=== PATIENT | female | born 1985 | race Caucasian/White ===

== ENCOUNTER 2025-09-03 13:20 | Emergency (ER) | payer BC, SELFPAY ==
[2025-09-03 13:26] VITALS: BP 137/91
[2025-09-03] MEDS: TORADOL 15 MG IV (15:52)
[2025-09-03 15:54] LABS: Hematocrit 42.7 % (37.0-47.0); Hemoglobin 13.8 g/dL (12.0-16.0); Mean Corp Hgb Conc. 32.3 g/dL (33.0-37.0); Mean Corpuscular Volume 87.0 fL (81.0-99.0); Nucleated Red Blood Cells % 0 %; Platelet Count 388 10^3/uL (130-400); Red Cell Dist. Width 12.4 % (11.5-14.5)
[2025-09-03 16:00] VITALS: BP 129/74
--- NOTE | 2025-09-03 16:04 | ED.GENMED ---
History of Present Illness
General
Chief Complaint: Musculo-Skeletal Complaint
Source: patient
Exam Limitations: none
Time Seen by Provider: 09/03/25 14:48
Nursing documentation reviewed up to this point in time: agreed with
History of Present Illness
History of Present Illness:
Patient is a 40-year-old healthy female who presents to the emergency department for evaluation of left arm pain along with painful swallowing. Patient states that for the past 2 days she has had a constant pain in her left upper chest/clavicle
area. She reports occasional radiation down her left arm. She denies any clear exertional or positional component to symptoms. No associated shortness of breath, back pain or productive cough. No known inciting injury or trauma.
In addition � patient reports she has been having pain in her left throat/neck only when swallowing over the past two days. She was seen at an urgent care yesterday where they tested her for strep, which was negative. She denies any other viral URI
symptoms. No known sick contacts.
Past History
Past History
ED Past Medical History: Other (Herniated disc, ADHD)
ED Past Surgical History: (X2) and Other (Jaw surgery)
Social History
Tobacco: Former smoker
Alcohol: None
Personal:
Living: with family
Review of Systems
Review of Systems
Allergies reviewed?: Yes
All Other Systems: ROS reviewed and negative except as documented in HPI and ROS
Phy Exam
Physical Exam
Physical Exam:
Vitals: Mildly hypertensive, otherwise vital signs stable. Afebrile
General: Patient is well appearing, no acute distress
Skin: Warm and dry, no rashes or lesions
Head: Normocephalic, atraumatic
Eyes: Sclera nonicteric.
Throat: No pharyngeal erythema. No tonsillar asymmetry, edema or exudates. Uvula midline. Protecting airway
Neck: Normal ROM, no cervical spine tenderness, no meningismus. No erythema, edema, or focal tenderness of neck. No palpable cervical lymphadenopathy.
Cardiac: Regular rate and rhythm, no murmurs. Mild reproducible tenderness in left upper chest wall.
Pulm: Normal respiratory effort. Lungs clear
Abdomen: No abdominal tenderness.
Extremities: No deformity or bony tenderness of LUE. No overlying skin changes. Full ROM in LUE against resistance. 2+ palpable radial and brachial pulse with normal capillary refill
Neuro: AAOx3. Grossly intact.
Psychiatric: Normal affect.
Course
Orders/Labs/Results
Orders:
Orders
09/03/25 13:21
Electrocardiogram (*1) Urgent
Reason for Study: Other
Other Reason for Exam: arm pain and neck pain with nausea.
EKG- Treatment ONCE
09/03/25 15:37
Ketorolac [Toradol] 15 mg IV NOW STA
09/03/25 15:38
Test Result ONCE
09/03/25 15:48
Complete Blood Count/With Diff Urgent
Comprehensive Metabolic Panel Urgent
HCG, Serum Qualitative Screen Urgent
Monotest Urgent
Troponin I Urgent
Abnormal Lab Results
09/03/25
15:48
MCHC 32.3 L g/dL
(33.0-37.0)
Total Protein 8.3 H g/dl
(6.3-8.2)
Albumin 5.2 H g/dl
(3.5-5.0)
09/03/25 15:48
09/03/25 15:48
Vital Signs
Initial and Last Documented VS:
Initial Vital Signs
Temp Pulse Resp BP Pulse Ox
98.3 F 91 17 137/91 99
09/03/25 13:26 09/03/25 13:26 09/03/25 13:26 09/03/25 13:26 09/03/25 13:26
Last Documented Vital Signs
Temp Pulse Resp BP Pulse Ox
98.3 F 69 20 129/74 99
09/03/25 13:26 09/03/25 16:00 09/03/25 16:00 09/03/25 16:00 09/03/25 16:05
MDM/Problems Addressed
Differential Diagnosis Includes:
Not limited to: chest wall strain, cervical muscle strain, viral pharyngitis, foreign body, peritonsillar abscess, retropharyngeal abscess, etc
MDM/Problems Addressed:
40-year-old female with two days of constant left upper chest discomfort and left sided odynophagia. No other infectious symptoms. No exertional or pleuritic component to chest discomfort.
Vitals stable. On exam, patient appears well and in no distress. Posterior pharynx clear without any tonsillar edema. Uvula midline. 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 No palpable lymphadenopathy in cervical region. No obvious areas of swelling, tenderness or erythema of
neck. She has clear speech and no dysphagia. Cardio/pulmonary assessment unremarkable. Mild reproducible tenderness in left upper chest without obvious deformities or overlying skin changes of LUE. Neurovascuarly intact.
Symptoms atypical with broad differential. An EKG was obtained in triage, with no evidence of acute ischemia.
I did check basic lab work, without acute abnormalities. Cardiac enzymes negative. Given pain has been constant for 2 days � feel this is sufficient to rule out acute MT.
I did recommend imaging of neck to rule out deep space infection, foreign body, etc., as well as chest imaging to check for bony abnormality or obvious lung pathology. Patient declines all imaging and is aware we could be missing a serious
diagnosis.
Unclear etiology for symptoms today. Likely muscular however underlying infectious process would be on differential however patient declines all imaging. No evidence of acute cardiac process.
Will discharge home with close outpatient follow up with primary care and strict return precautions. Patient comfortable with plan.
Chronic conditions affecting care:
N/A
Acute Exacerbation and/or Progression of Chronic Illness:
N/A
*Pulse Oximetry
SaO2: 99
Oxygen Mode of Delivery: Room air
Patient hypoxic: no
*EKG
Interpreted by ED Provider?: Yes
EKG Intrepretation Date: 09/03/25
Interpretation: normal
Comparison EKG: no comparison EKG present
Heart Rate: 70
Rate: normal
Rhythm: sinus
[place]: normal axis
Interval: normal QT interval
QRS Pattern: normal QRS
Ischemia: no ischemia
*Frame Polisher Interpretation
Rate: Frame Polisher- N/A
*Critical Care Note
Total Time (30-74mins, 75-104mins- exclusive of procedures): Not Applicable
ED Attending Note
-
Portions of this chart may have been created with voice recognition software.� Occasional wrong word or��sound alike� substitutions may have occurred due to the inherent limitations of voice recognition software.
Discharge Plan
Departure
Patient Disposition: Home (Routine Discharge)
Date of Disposition: 09/03/25
Time of Disposition: 16:32
Patient with high blood pressure during this ER visit?: Yes
Discharge Problem:
Pain of left clavicle, Neck pain on left side
Instructions: BLOOD PRESSURE
Prescriptions:
No Action
multivitamin Tablet
1 tab PO DAILY
dextroamphetamine-amphetamine [Adderall] 7.5 mg Tablet
15 mg PO DAILY
prednisone 20 mg tablet
40 mg PO DAILY Qty: 8 0RF
oxycodone-acetaminophen [Endocet] 5-325 mg tablet
1 tab PO Q4H PRN (Reason: moderate pain) Qty: 7 0RF
Referrals:
Shahnaz Kenny MD [Family Provider, Family Practice] - Follow up in 5-7 days
Activity Restrictions/Additional Instructions:
RETURN TO THE EMERGENCY DEPARTMENT ANY FEVERS, WORSENING PAIN OR ANY SWELLING/REDNESS OF LEFT NECK, DIFFICULTY BREATHING OR SWALLOWING, NUMBNESS/TINGLING OR SEVERE PAIN IN LEFT ARM, WORSENING IN CURRENT SYMPTOMS, OR ANY OTHER CONCERNS
- As discussed- your lab work showed no acute abnormalities today. Your EKG and cardiac enzyme showed no evidence of an acute cardiac process. You declined any imaging of your chest or neck today.
- Continue to take Motrin/Tylenol as needed for pain.
- Follow-up with your primary care provider for further evaluation/management to ensure that your symptoms are improving
Monitor your symptoms closely and return to the emergency department with any acute worsening/new symptoms or any other concerns
Interventions
Interventions:
*Risk Screen - Suicide Last Done: 09/03/25 13:23
*General Assessment Last Done: 09/03/25 13:28
*Neglect/Abuse Screening Last Done: 09/03/25 13:28
*ED COVID-19 Vaccine History Last Done: 09/03/25 13:28
*ED Influenza Vaccine History Last Done: 09/03/25 13:28
*Nursing Disposition Last Done: 09/03/25 16:41
ED-Musculoskeletal Assessment Last Done: 09/03/25 16:00
Discharge Date and Time
Discharge Date/Time: 09/03/25 16:41
Print Language: [email or web address]
[2025-09-03 16:08] LABS: HCG, Serum Qualitative Screen Negative
[2025-09-03 16:17] LABS: Troponin I 0.017 ng/ml
[2025-09-03 16:18] LABS: ALT (SGPT) 15 U/L (0-35); AST (SGOT) 22 U/L (14-36); Albumin 5.2 g/dl (3.5-5.0); Alkaline Phosphatase 40 U/L (38-126); Blood Urea Nitrogen 11 mg/dl (7-17); Calcium 10.1 mg/dl (8.4-10.2); Carbon Dioxide 29 mmol/L (22-30); Chloride 104 mmol/L (98-107); Glucose 97 mg/dl (70-99); Potassium 4.8 mmol/L (3.5-5.1); Sodium 139 mmol/L (135-145); Total Protein 8.3 g/dl (6.3-8.2); eGFR > 60.00
== END 2025-09-03 16:41 | disposition home or self-care (01) ==
LOC: EMR 13:20
PROVIDERS: Physician Assistant; EMERGENCY PHYSICIAN Emergency Medicine; FAMILY PHYSICIAN Student in an Organized Health Care Education/Training Program
DX: M54.2 Cervicalgia (principal); M25.512 Pain in left shoulder; R07.89 Other chest pain; Z87.891 Personal history of nicotine dependence
CPT/HCPCS: 96374; 99284; 80053; 84484; 84703; 85025; 86308; 93005